=== PATIENT | female | born 1990 | race Caucasian/White ===

== ENCOUNTER 2024-07-18 21:30 | Emergency (ER) | payer OTHER, SELFPAY ==
[2024-07-18 21:32] VITALS: BP 149/84
--- NOTE | 2024-07-18 23:07 | ED.GENMED ---
History of Present Illness
General
Chief Complaint: Cold/Flu/URI Symptoms
Source: patient
Exam Limitations: none
Time Seen by Provider: 07/18/24 22:30
Nursing documentation reviewed up to this point in time: agreed with
History of Present Illness
History of Present Illness:
The patient is a 33-year-old female who reports that she is going to [place] tomorrow early in the morning and wanted to get checked out in the ED. Patient reports that throughout the day today, she has developed mucus production in her throat,
soreness in her neck and bilateral shoulders as well as pain in her back. Patient reports she took Tylenol prior to arrival and her symptoms are nearly gone. Patient reports that she thinks she is ready to go home and does not want to wait
anymore. She denies shortness of breath and cough. Patient states she also felt severe chills prior to arrival to feels warm. Patient adamantly denies chest pain and shortness of breath to me.
Past History
Past History
ED Past Medical History: None
ED Past Surgical History: Other
Social History
Tobacco: Non-smoker
Alcohol: Other
Drug: None
Personal: Other
Living: with family
Employment: Other
Family History
Family History: Other
Review of Systems
Review of Systems
Allergies reviewed?: Yes
All Other Systems: ROS reviewed and negative except as documented in HPI and ROS
Constitutional: Reports chills
EENT: Reports other (Mucus production and throat)
Respiratory: Reports no symptoms
Cardiac: Reports no symptoms
ABD/GI: Reports no symptoms
: Reports no symptoms
Musculoskeletal: Reports muscle stiffness, neck pain and back pain
Skin: Reports no symptoms
Neurological: Reports no symptoms
Endocrine: Reports no symptoms
Hematologic/Lymphatic: Reports no symptoms
Psychiatric: Reports no symptoms
Phy Exam
Physical Exam
Physical Exam:
Physical Exam
General: no apparent distress, not acutely ill, well appearing, conversational
Neck: supple. no meningeal signs. normal psoterior pharynx. No cervical lymphadenopathy. No pharyngeal erythema or exudate. TMs appear normal bilaterally
Heart: s1/s2 regular rate and rhythm, no murmur. equal radial pulses.
Lungs: no acute respiratory distress. clear bilaterally. No crackles heard
Abdomen: Soft, nontender
Neuro: alert and oriented. no focal neurological deficits
Skin: no rash
Psychiatric: well kept. interactive and cooperative
Extremities: no edema. no calf tenderness. negative homans. good distal pulses
Course
Vital Signs
Initial and Last Documented VS:
Initial Vital Signs
Temp Pulse Resp BP Pulse Ox
98.2 F 105 20 149/84 100
07/18/24 21:32 07/18/24 21:32 07/18/24 21:32 07/18/24 21:32 07/18/24 21:32
Last Documented Vital Signs
Temp Pulse Resp BP Pulse Ox
98.2 F 105 20 149/84 100
07/18/24 21:32 07/18/24 21:32 07/18/24 21:32 07/18/24 21:32 07/18/24 21:32
MDM/Problems Addressed
Differential Diagnosis Includes:
Viral illness such as COVID and flu, pneumonia
MDM/Problems Addressed:
Patient presents with diffuse body pain including neck, shoulders and back as well as mucus production
Acute Exacerbation and/or Progression of Chronic Illness: HTN
*Pulse Oximetry
Patient hypoxic: no
*EKG
Interpreted by ED Provider?: NA
*Rehab Director Occupational Therapist Interpretation
Rate: Rehab Director Occupational Therapist- N/A
*Critical Care Note
Total Time (30-74mins, 75-104mins- exclusive of procedures): Not Applicable
Data Reviewed
Source: patient
Further Testing Considered But Not Given:
I offered patient COVID and flu swab given she had diffuse body aches and chills which she told me she does not want it because ' she did rather not know'
Patient Management
Social determinants of health affecting care: Living situation and Strong social support
Escalation/DeEscalation of care consider admission/obs:
Patient appears well and comfortable. She is breathing comfortably. Her lungs are clear without any sign of pneumonia. There is no sign of pharyngeal erythema or exudate to suggest strep pharyngitis. Patient denies chest pain and shortness of
breath so it is doubtful she has a PE or acute coronary syndrome. Patient may have a viral illness.
ED Attending Note
-
Portions of this chart may have been created with voice recognition software.� Occasional wrong word or��sound alike� substitutions may have occurred due to the inherent limitations of voice recognition software.
Discharge Plan
Departure
Date of Disposition: 07/18/24
Time of Disposition: 22:59
Patient with high blood pressure during this ER visit?: Yes
Condition: Good
Covid-19: Not Applicable
Instructions: BLOOD PRESSURE, Musculoskeletal Pain
Prescriptions:
No Action
1 tab PO ONCE
acetaminophen 325 mg Tablet
650 mg PO Q4HPRN PRN (Reason: mild pain) Qty: 20 0RF
ibuprofen 600 mg Tablet
600 mg PO Q6HPRN PRN (Reason: moderate pain/cramps) Qty: 20 0RF
Activity Restrictions/Additional Instructions:
Return with any shortness of breath. You can take up to 1000 mg of Tylenol every 4-6 hours. In addition to the Tylenol, you can also take 600 mg of Motrin every 6-8 hours for body aches.
Interventions
Interventions:
*Risk Screen - Suicide Last Done: 07/18/24 21:32
*General Assessment Last Done: 07/18/24 21:32
*Neglect/Abuse Screening Last Done: 07/18/24 21:32
*ED COVID-19 Vaccine History Last Done: 12/25/24 21:38
Discharge Date and Time
Print Language: HAITIAN
== END 2024-07-18 23:12 | disposition home or self-care (01) ==
LOC: EMR 21:30
PROVIDERS: EMERGENCY PHYSICIAN Emergency Medicine
DX: R09.89 Other specified symptoms and signs involving the circulatory and respiratory systems (principal); R68.83 Chills (without fever); M54.2 Cervicalgia; M25.512 Pain in left shoulder; M25.511 Pain in right shoulder; M54.9 Dorsalgia, unspecified; R03.0 Elevated blood-pressure reading, without diagnosis of hypertension
CPT/HCPCS: 99282